=== PATIENT | female | born 1995 | race Caucasian/White ===

== ENCOUNTER 2025-05-17 00:58 | Emergency (ER) | payer SELFPAY ==
[~2025-05-17] VITALS: Ht 157.5 cm; Wt 91.0 kg
[2025-05-17 01:20] VITALS: TEMP 36.8; O2SAT 99
[2025-05-17] MEDS: KETOROLAC 15MG/ML VIAL IM ONE (04:42)
[2025-05-17] MEDS: METOCLOPRAMIDE HCL 10MG TABLET PO ONE (04:42)
[2025-05-17 05:58] VITALS: BP 125/71; PULSE 75; RESP 16; O2SAT 100
== END 2025-05-17 06:02 | disposition home or self-care (01) ==
LOC: ER 01:30
DX: R51.9 Headache, unspecified (principal); F20.9 Schizophrenia, unspecified
CPT/HCPCS: 99283; 96372; J1885; J8597